=== PATIENT | male | born 1965 | race Caucasian/White ===

== ENCOUNTER 2020-07-27 05:40 | Outpatient (CLI) | payer MEDICARE ==
[~2020-07-27] VITALS: Ht 172.7 cm; Wt 63.5 kg
[~2020-07-27 05:40] MED LIST: ATEN50TA PO; AZTH250C PO; BENZ100C18 PO; BLOOD PRESSURE MED; DOXY100C2 PO; ENLP5T PO; HYDR-3456 PO; LISI1TAB10 PO; METH4TAB PO; NAPR-243 PO; ORPH100T PO
[2020-07-27] MEDS ORDERED: DOXA4TAB2 PO (10:16)
[2020-07-27] MEDS ORDERED: AMLO-251 PO (10:16)
[2020-07-27] MEDS ORDERED: HYDR-34 PO (10:16)
[2020-07-27] MEDS ORDERED: SIMV40TA25 PO (10:16)
== END 2020-07-27 13:31 | disposition home or self-care (01) ==
LOC: PREOP 05:40
PROVIDERS: ATTEND Surgery
DX: Z01.818 Encounter for other preprocedural examination (principal)

== ENCOUNTER 2020-08-01 07:56 | Day surgery (SDC) | payer MEDICARE, MEDICAID ==
[~2020-08-01] VITALS: Ht 172.7 cm; Wt 63.5 kg
[2020-08-01] VITALS (7 sets, daily range): BP systolic 108–132; BP diastolic 58–64
[~2020-08-01 07:56] MED LIST changes: +AMLO-251 PO; +DOXA4TAB2 PO; +HYDR-34 PO; +SIMV40TA25 PO
[2020-08-01] MEDS ORDERED: LACTATED RINGERS 1,000 ML IV ONE (08:04)
[2020-08-01] MEDS ORDERED: LACTATED RINGERS 1,000 ML IV STA (08:18)
[2020-08-01] MEDS ORDERED: PROPOFOL INJECTION 50 ML IV ONE (09:01)
[2020-08-01] MEDS ORDERED: MIDAZOLAM 2 MG/2 ML (VERSED) VIAL ONE (09:01)
--- NOTE | 2020-08-01 10:01 | Discharge Inst-Simple/Standard ---
Discharge Inst-Standard Patient Instructions/Follow Up Plan of Care/Instructions/FU: 2 weeks Natalia Activity as Tolerated: Yes Discharge Diet: Regular Diet MARY THURMAN DO Aug 01, 2020 10:01
--- NOTE | 2020-08-01 10:03 | Progress Note-Post Operative ---
Post-Operative Progess Note Surgeon (s)/Restaurant Line Server (s) Surgeon MARY THURMAN DO Restaurant Line Server: na Pre-Operative Diagnosis +cologuard Post-Operative Diagnosis colon polyps Procedure & Operative Findings Date of Procedure 08/01/20 Procedure Performed/Findings colonoscopy c hot bx polypectomy x 3, snare polypectomy x 2 Anesthesia Type per cemetery vault installer Estimated Blood Loss Estimated blood loss (mL): na Specimens/Packing Specimens Removed sigmoid polyp x 2, rectal polyp x 3 MARY THURMAN DO Aug 01, 2020 10:03
--- NOTE | 2020-08-01 10:44 | Anesthesia-General Post-Op ---
MAC Patient Condition Mental Status/LOC: Same as Preop Cardiovascular: Satisfactory Nausea/Vomiting: Absent Respiratory: Satisfactory Pain: Controlled Complications: Absent Post Op Complications Complications None Follow Up Care/Instructions Patient Instructions None needed. Anesthesiology Discharge Order Discharge Order Patient is doing well, no complaints, stable vital signs, no apparent adverse anesthesia problems. No complications reported per nursing. NAIF RUTHERFORD CRNA Aug 01, 2020 10:44
--- NOTE | 2020-08-01 15:36 | OPERATIVE REPORT ---
DATE OF SERVICE: 08/01/2020 PREOPERATIVE DIAGNOSIS: Positive Cologuard. POSTOPERATIVE DIAGNOSIS: Colon polyps. PROCEDURE: Colonoscopy with hot biopsy polypectomy x3 and snare polypectomy x2. ANESTHESIA: Per SALES AGENT FINANCIAL REPORT SERVICE. SURGEON: Mary Fisher DO ESTIMATED BLOOD LOSS: None. COMPLICATIONS: None. INDICATIONS: The patient is a 55-year-old male with a need for colonoscopy due to positive Cologuard. He understands risks and benefits of procedure and wished to proceed with procedure. Consent was signed in the chart. DESCRIPTION OF PROCEDURE: The patient was taken to the endoscopy suite, placed in left lateral recumbent position. Timeout was performed. Digital rectal exam was performed. No palpable polyps, masses or ulcerations. Scope was inserted in the rectum and advanced all the way to cecum with minimal difficulty. Prep had quite a bit of debris still present within the colon. Lots of irrigation and suction was performed for better visualization. Scope was then slowly retracted back. No polyps, masses or ulcerations were visualized within the cecum, ascending, transverse and descending colon. Two polyps were present within the distal sigmoid, which snare polypectomy was performed. These were obtained for specimen. Scope was then continuously retracted back into the rectum where there were three small polyps in the rectum, which hot biopsy polypectomy was performed. Scope was retroflexed noting no other pathology. Scope was returned to its normal position, slowly withdrawn until completely removed. The patient tolerated procedure well without any complications, taken to recovery room in stable condition. RECOMMENDATIONS: I would recommend repeat colonoscopy in one year due to multiple polyps and some debris in the colon. If any issues before that would be reevaluated at that time. The patient will follow up on pathology results. Job ID: [id number] DocumentID: [id number] Dictated Date: 08/01/2020 10:05:50 Yoker Machine Operator Date: 08/01/2020 15:04:12 Dictated By: MARY FISHER DO
== END 2020-08-01 11:00 | disposition home or self-care (01) ==
LOC: ENDO 07:56
PROVIDERS: ATTEND Surgery
DX: D12.5 Benign neoplasm of sigmoid colon (principal); D12.8 Benign neoplasm of rectum; K63.5 Polyp of colon; K63.89 Other specified diseases of intestine; R19.7 Diarrhea, unspecified; R19.5 Other fecal abnormalities; I10 Essential (primary) hypertension; E78.5 Hyperlipidemia, unspecified; F17.210 Nicotine dependence, cigarettes, uncomplicated; Z79.899 Other long term (current) drug therapy; Z79.891 Long term (current) use of opiate analgesic
CPT/HCPCS: 88305

== ENCOUNTER → 2020-09-15 | Outpatient (CLI) | payer MEDICARE, MEDICAID ==
[~2020-09-15] MED LIST changes: +CATHETER FLUSH 10 ML SYR IV PRN; +HOLD METFORMIN - RECEIVED CONTRAST 20 ML VIAL IV SCH; +IOHEXOL 350 MG/ML 100 ML (OMNIPAQUE 350) VIAL IV ONE; +NS 100 ML (IVPB) BAG IV ONE
[2020-09-15 08:18] LABS: ALBUMIN 3.3 GM/DL (3.2-4.5); BILIRUBIN,TOTAL 0.4 MG/DL (0.1-1.0); CREATININE SERUM 0.66 MG/DL (0.60-1.30); POTASSIUM 3.9 MMOL/L (3.6-5.0); TOTAL PROTEIN 7.2 GM/DL (6.4-8.2)
--- NOTE | 2020-09-15 09:17 | Diagnostic Imaging Report ---
EXAMINATION: CT abdomen and pelvis with intravenous contrast. TECHNIQUE: Multiple contiguous axial images were obtained through the abdomen and pelvis after the uneventful administration of intravenous contrast. All CT scans use one or more of the following dose optimizing techniques: automated exposure control, MA and/or KvP adjustment based on patient size and exam type or iterative reconstruction. HISTORY: Unexpected weight loss. Abdominal pain and bloating after eating. COMPARISON: None available. FINDINGS: The heart is unremarkable. A small amount of atelectasis is seen in the lung bases. There is calcified aortic and iliac atherosclerotic plaque. There is complete occlusion of the aorta inferior to the level of the SMA with thrombus extending into the bilateral common iliac arteries. There is reconstitution of flow to the lower extremity via prominent bilateral epigastric arteries. There is complete occlusion of the proximal SMA with reconstitution of flow in the more proximal portion of the SMA. Diminutive SEAN is noted. The renal arteries are patent. The celiac axis is patent. No findings to suggest bowel infarct. No evidence of bowel obstruction. No free fluid or free air in the abdomen and pelvis. The liver, spleen, pancreas, adrenal glands, and kidneys have a normal appearance. Gallstone is visualized in the gallbladder lumen. There is no pathologically enlarged mesenteric or retroperitoneal adenopathy. No acute osseous abnormalities. Ureters and bladder are grossly normal. There is no free air, loculated collection, or adenopathy in the pelvis. IMPRESSION: 1. Findings consistent with aortoiliac occlusive disease (Leriche syndrome). Additional occlusion is also seen in the proximal SMA. Findings are likely chronic given the intact robust epigastric collateral supply to the lower extremities and intact collateral flow to the superior mesenteric artery. No findings to suggest bowel infarct. No free fluid or free air seen in the abdomen and pelvis. 2. Cholelithiasis without CT evidence of acute cholecystitis. Findings were called to Dr. Engel at 9:05 AM on 09/15/[address] Brody Weaver. Dictated by: Dictated on workstation # [id number]
== END ==
LOC: RAD 08:45
PROVIDERS: ATTEND Internal Medicine
DX: K80.20 Calculus of gallbladder without cholecystitis without obstruction (principal); R63.4 Abnormal weight loss
CPT/HCPCS: 36415; 74177; 80053

== ENCOUNTER 2020-11-13 19:53 | Emergency (ER) | payer MEDICARE, MEDICAID ==
[~2020-11-13] VITALS: Ht 167 cm; Wt 50.0 kg
[~2020-11-13 19:53] MED LIST changes: -CATHETER FLUSH 10 ML SYR IV PRN; -HOLD METFORMIN - RECEIVED CONTRAST 20 ML VIAL IV SCH; -IOHEXOL 350 MG/ML 100 ML (OMNIPAQUE 350) VIAL IV ONE; -NS 100 ML (IVPB) BAG IV ONE
--- NOTE | 2020-11-13 20:29 | ED Abdominal Pain ---
General Chief Complaint: Abdominal/GI Problems Stated Complaint: GI PAIN Source of Information: Patient Exam Limitations: No Limitations History of Present Illness Date Seen by Provider: Nov 13, 2020 Time Seen by Provider: 20:00 Initial Comments Patient to the ER by EMS from home with chief complaint of intensifying progressive pain in his umbilicus region. He was at [facility] apparently had it worked up and there was some kind of narrowing. Unsure if it is hernia, obstruction or other disease. He denies a history of peripheral or central arterial disease. He states he has not had a bowel since yesterday but he is having loose stools then. He is not having any fevers chills cough shortness of air chest pain. He has had no abdominal surgeries. No nausea or vomiting. No dysuria. He is unclear what the pathology they found he has just knows that a manager rfid is going to do surgery on him. Allergies and Home Medications Allergies Coded Allergies: No Known Drug Allergies (Unverified , 12/24/09) Patient Home Medication List Home Medication List Reviewed: Yes Amlodipine Besylate (Amlodipine Besylate) 10 Mg Tablet, 10 MG PO DAILY, (Reported) Entered as Reported by: RICK CARVAJAL on 07/27/20 1016 Doxazosin Mesylate (Doxazosin Mesylate) 4 Mg Tablet, 4 MG PO DAILY, (Reported) Entered as Reported by: RCIK CARVAJAL on 07/27/20 1016 Hctz/Lisinopril (Lisinopril-Hctz 20-25MG Tab) 1 Tab Tablet, 1 EACH PO DAILY, (Reported) Entered as Reported by: JI BURGER on 05/11/12 2303 Hydrocodone Bit/Acetaminophen (HYDROcodone/APAP 7.5/325 TAB) 1 Ea Tablet, 1 EA PO PRN, (Reported) Entered as Reported by: RICK CARVAJAL on 07/27/20 1016 Simvastatin (Simvastatin) 40 Mg Tablet, 40 MG PO DAILY, (Reported) Entered as Reported by: RICK CARVAJAL on 07/27/20 1016 Review of Systems Review of Systems Constitutional: No chills, No diaphoresis, No fever EENTM: No Blurred Vision, No Double Vision Respiratory: Denies Cough, Denies Shortness of Air Cardiovascular: Denies Chest Pain, Denies Lightheadedness Gastrointestinal: See HPI; Denies Abdomen Distended; Abdominal Pain; Denies Constipated; Diarrhea; Denies Nausea, Denies Vomiting Genitourinary: Denies Burning, Denies Discharge Musculoskeletal: No back pain, No joint pain Skin: No pruritus, No rash Psychiatric/Neurological: Denies Anxiety, Denies Depressed All Other Systems Reviewed Negative Unless Noted: Yes Past Wrfuiff-Uugoma-Umewrm Hx Patient Social History Tobacco Use?: No Use of E-Cig and/or Vaping dev: No Substance use?: No Alcohol Use?: No Seasonal Allergies Seasonal Allergies: No Past Medical History Surgeries: No Respiratory: No Cardiac: Yes High Cholesterol, Hypertension Neurological: No Reproductive Disorders: No Sexually Transmitted Disease: No HIV/AIDS: No Genitourinary: No Gastrointestinal: No Musculoskeletal: Yes Chronic Back Pain Endocrine: No HEENT: No Loss of Vision: Denies Hearing Impairment: Denies Cancer: No Psychosocial: No Integumentary: No Blood Disorders: No Physical Exam Vital Signs Vital Signs - First Documented 11/13/20 20:00 Temp 37.5 Pulse 127 Resp 18 B/P (MAP) 104/95 Pulse Ox 94 O2 Delivery Nasal Cannula O2 Flow Rate 2.00 Capillary Refill : Height/Weight/BMI Height: 5'8" Weight: 185lbs. oz. 83.622259io; 21.29 BMI Method:Stated General Appearance: WD/WN, moderate distress HEENT: PERRL/EOMI, pharynx normal Neck: non-tender, full range of motion, normal inspection Respiratory: lungs clear, normal breath sounds, no respiratory distress, no accessory muscle use Cardiovascular: normal peripheral pulses, regular rate, rhythm Gastrointestinal: normal bowel sounds, guarding, tenderness (Exquisite tenderness everywhere around the umbilicus) Neurologic/Psychiatric: alert, normal mood/affect, oriented x 3 Skin: normal color, warm/dry Focused Exam Lactate Level 11/13/20 20:00: Lactic Acid Level 1.67 Lactic Acid Level Laboratory Tests Test 11/13/20 20:00 Lactic Acid Level 1.67 MMOL/L (0.50-2.00) Progress/Results/Core Measures Results/Orders Lab Results Laboratory Tests Test 11/13/20 20:00 11/13/20 22:16 Range/Units White Blood Count 10.8 4.3-11.0 10^3/uL Red Blood Count 3.95 L 4.30-5.52 10^6/uL Hemoglobin 9.0 L 13.3-17.7 g/dL Hematocrit 29 L 40-54 % Mean Corpuscular Volume 72 L 80-99 fL Mean Corpuscular Hemoglobin 23 L 25-34 pg Mean Corpuscular Hemoglobin Concent 32 32-36 g/dL Red Cell Distribution Width 17.0 H 10.0-14.5 % Platelet Count 372 130-400 10^3/uL Mean Platelet Volume 9.1 9.0-12.2 fL Immature Granulocyte % (Auto) 1 % Neutrophils (%) (Auto) 77 H 42-75 % Lymphocytes (%) (Auto) 10 L 12-44 % Monocytes (%) (Auto) 7 0-12 % Eosinophils (%) (Auto) 4 0-10 % Basophils (%) (Auto) 1 0-10 % Neutrophils # (Auto) 8.4 H 1.8-7.8 10^3/uL Lymphocytes # (Auto) 1.1 1.0-4.0 10^3/uL Monocytes # (Auto) 0.8 0.0-1.0 10^3/uL Eosinophils # (Auto) 0.5 H 0.0-0.3 10^3/uL Basophils # (Auto) 0.1 0.0-0.1 10^3/uL Immature Granulocyte # (Auto) 0.1 0.0-0.1 10^3/uL Prothrombin Time 15.0 H 12.2-14.7 SEC INR Comment 1.1 0.8-1.4 Activated Partial Thromboplast Time 37 H 24-35 SEC Sodium Level 130 L 135-145 MMOL/L Potassium Level 3.4 L 3.6-5.0 MMOL/L Chloride Level 97 L 98-107 MMOL/L Carbon Dioxide Level 20 L 21-32 MMOL/L Anion Gap 13 5-14 MMOL/L Blood Urea Nitrogen 10 7-18 MG/DL Creatinine 0.53 L 0.60-1.30 MG/DL Estimat Glomerular Filtration Rate 162 BUN/Creatinine Ratio 19 Glucose Level 119 H 70-105 MG/DL Lactic Acid Level 1.67 0.50-2.00 MMOL/L Calcium Level 9.2 8.5-10.1 MG/DL Corrected Calcium 10.0 8.5-10.1 MG/DL Total Bilirubin 0.4 0.1-1.0 MG/DL Aspartate Amino Transf (AST/SGOT) 10 5-34 U/L Alanine Aminotransferase (ALT/SGPT) 9 0-55 U/L Alkaline Phosphatase 105 40-136 U/L Total Creatine Kinase 11 L 30-200 U/L Total Protein 7.0 6.4-8.2 GM/DL Albumin 3.0 L 3.2-4.5 GM/DL SARS-CoV-2 RNA (RT-PCR) Not Detected Not Detecte My Orders Orders - TREVON FANG Fentanyl Inj (Sublimaze Injection) (11/13/20 20:30) Ed Iv/Invasive Line Start (11/13/20 20:30) Ns Iv 1000 Ml (Sodium Chloride 0.9%) (11/13/20 20:30) Ciprofloxacin Iv 400mg/200ml (Cipro Iv S (11/13/20 20:30) Metronidazole 500mg/100ml Ivpb (Flagyl 5 (11/13/20 20:30) Iohexol Injection (Omnipaque 350 Mg/Ml 1 (11/13/20 21:30) Received Contrast (Hold Metformin- Contr (11/13/20 21:30) Ns (Ivpb) (Sodium Chloride 0.9% Ivpb Bag (11/13/20 21:30) Covid 19 Inhouse Test (11/13/20 22:13) Medications Given in ED Current Medications Medications Dose Ordered Sig/Truong Route Start Time Stop Time Status Last Admin Dose Admin Ciprofloxacin/ Dextrose 200 ml @ 200 mls/hr ONCE ONCE IV 11/13/20 20:30 11/13/20 21:29 DC 11/13/20 21:55 200 MLS/HR Fentanyl Citrate 50 mcg ONCE ONCE IVP 11/13/20 20:30 11/13/20 20:31 DC 11/13/20 20:34 50 MCG Iohexol 100 ml ONCE ONCE IV 11/13/20 21:30 11/13/20 21:31 DC 11/13/20 21:23 66 ML Metronidazole 100 ml @ 100 mls/hr ONCE ONCE IV 11/13/20 20:30 11/13/20 21:29 DC 11/13/20 21:55 100 MLS/HR Sodium Chloride 100 ml ONCE ONCE IV 11/13/20 21:30 11/13/20 21:31 DC 11/13/20 21:24 80 ML Vital Signs/I&O 11/13/20 11/13/20 11/13/20 11/13/20 20:00 20:00 20:42 22:18 Temp 37.5 37.5 37.5 Pulse 127 104 106 Resp 18 18 14 B/P (MAP) 104/95 148/63 (91) 107/60 Pulse Ox 94 94 94 91 O2 Delivery Nasal Cannula Nasal Cannula Room Air Room Air O2 Flow Rate 2.00 2.00 Progress Progress Note #1: Time: 20:28 Progress Note Differential is wide and includes things such as hernia, obstruction, biliary disease, appendicitis etc. Plan to get a CT of his abdomen pelvis with IV contrast given 50 mcg of fentanyl and because his blood pressure was a little on the soft side 104 systolic on arrival we initiated a liter of fluids. It has improved to 145/63. Heart rate is elevated so we are doing a septic work-up with Darciro and Vinod. I estimate his weight around 100 pounds therefore a liter is more than 20 mL/kg. Progress Note #2: Time: 23:20 Progress Note Patient has warm, pale feet with dopplerable dorsal pedal pulses. This is being worked up outpatient so we will call [facility] and speak to the surgery team and see what their recommendations are for him tonight. Capillary refill is 3 to 4 seconds. We discussed the case with Dr. Plasencia who is on-call over at [facility] and he agrees that this can be managed outpatient at this time. He recommends that he call Dr. Mclaughlin first thing in the morning. We will provide him with some pain medicine and send him home. The patient's in agreement with this plan. Diagnostic Imaging Diagonstic Imaging: Xray Plain Films/CT/US/NM/MRI: chest Comments No acute cardiopulmonary process on 1 view chest. [facility]. [place], [place] NAME: LAVERNE SHARMA V MED REC#: [id number] PT STATUS: REG ER : 1965 PHYSICIAN: AKUA BOURNE BALL POINTS INSPECTOR ADMIT DATE: 11/13/20/ER Signed Date of Exam:11/13/20 CHEST 1 VIEW, AP/PA ONLY EXAMINATION: Chest 1 view HISTORY: sepsis COMPARISON: 01/30/2014 FINDINGS: Heart size and pulmonary vasculature are normal. There are patchy interstitial opacities within the mid and upper lungs as well as within the lung bases. No pleural effusion or pneumothorax. There are calcifications of the aorta. The osseous structures are intact. IMPRESSION: 1. Patchy interstitial opacities throughout the lungs which can be seen with pulmonary edema, atelectasis, or pneumonia. Dictated by: Dictated on workstation # [id number] Dict: 11/13/202035 Trans: 11/13/202152 [facility] [id number] Interpreted by: MIGUEL ANGEL TORRES DO Electronically signed by: MIGUEL ANGEL TORRES DO 11/13/202152 Reviewed: Reviewed by Ms Diagonstic Imaging: CT Plain Films/CT/US/NM/MRI: abdomen, pelvis Comments [facility] [place] [place] NAME: LAVERNE SHARMA REC#: [id number] PT STATUS: REG ER : 1965 PHYSICIAN: AKUA BOURNE BALL POINTS INSPECTOR ADMIT DATE: 11/13/20/ER Signed Date of Exam:11/13/20 CT ABDOMEN/PELVIS W EXAMINATION: CT abdomen and pelvis with intravenous contrast. TECHNIQUE: Multiple contiguous axial images were obtained through the abdomen and pelvis after the uneventful administration of intravenous contrast. All CT scans use one or more of the following dose optimizing techniques: automated exposure control, MA and/or KvP adjustment based on patient size and exam type or iterative reconstruction. HISTORY: Abdominal pain COMPARISON: 09/15/2020 FINDINGS: Lung bases: The lung bases are clear. Solid organs: The liver is normal without focal lesion. The gallbladder is normal. There is no biliary ductal dilation. Pancreas is normal. Spleen is normal. Adrenal glands are normal. There is trace bilateral hydronephrosis without visualized obstructing calculus. Bowel: There is no bowel obstruction. No findings of acute appendicitis. Peritoneum: There is no intraperitoneal free fluid or free air. No suspicious lymphadenopathy. Vasculature: Calcification of the aorta without aneurysm. There may be significant stenosis of the mid abdominal aorta inferior to the renal arteries. Musculoskeletal: Degenerative changes of the spine without suspicious osseous lesion or compression fracture. Pelvis: The prostate gland is normal. The urinary bladder is normal. IMPRESSION: 1. Near-complete stenosis of the abdominal aorta inferior to the renal arteries. 2. No other acute abnormality is seen within the abdomen or pelvis. Dictated by: Dictated on workstation # [id number] Dict: 11/13/202133 Trans: 11/13/202153 [facility] [id number] Interpreted by: MIGUEL ANGEL TORRES DO Electronically signed by: MIGUEL ANGEL TORRES DO 11/13/202153 Reviewed: Reviewed by Me Departure Impression Primary Impression: Abdominal aortic stenosis Disposition: HOME, SELF-CARE Condition: Stable Departure-Patient Inst. Decision time for Depature: 23:24 Referrals: BOUCHRA ESQUEDA MD (PCP/Family) Primary Care Physician Patient Instructions: No Instuctions Given Add. Discharge Instructions: In the morning call Dr. Mclaughlin and his team to set up the next step in your care for your narrowed aorta. If you have pain you may take 1 or 2 tablet of hydrocodone every 4 hours as needed. If you have intractable pain and you should return to the nearest ER or call your surgeon for instructions. All discharge instructions reviewed with patient and/or family. Voiced understanding. Scripts Hydrocodone/Acetaminophen (Hydrocodone-Acetamin 7.5-325) 1 Each Tablet 1 EACH PO Q4H PRN for PAIN-BREAKTHROUGH, #20 TAB 0 Refills Prov: TREVON FANG 11/13/20 TREVON FANG Nov 13, 2020 20:29
[2020-11-13] MEDS ORDERED: NS IV 1000 ML 1,000 ML IV SCH (20:30)
[2020-11-13] MEDS ORDERED: fentaNYL INJ 100 MCG/2 ML AMP IVP ONE (20:30)
[2020-11-13] MEDS ORDERED: metroNIDAZOLE 500MG/100ML IVPB 100 ML IV ONE (20:30)
--- NOTE | 2020-11-13 20:39 | Diagnostic Imaging Report ---
EXAMINATION: Chest 1 view HISTORY: sepsis COMPARISON: 01/30/2014 FINDINGS: Heart size and pulmonary vasculature are normal. There are patchy interstitial opacities within the mid and upper lungs as well as within the lung bases. No pleural effusion or pneumothorax. There are calcifications of the aorta. The osseous structures are intact. IMPRESSION: 1. Patchy interstitial opacities throughout the lungs which can be seen with pulmonary edema, atelectasis, or pneumonia. Dictated by: Dictated on workstation # [id number]
[2020-11-13 20:50] LABS: BASOPHILS # (AUTO) 0.1 10^3/uL (0.0-0.1); BASOPHILS % (AUTO) 1 % (0-10); EOSINOPHILS # (AUTO) 0.5 10^3/uL (0.0-0.3); EOSINOPHILS % (AUTO) 4 % (0-10); HEMATOCRIT 29 % (40-54); LYMPHOCYTES # (AUTO) 1.1 10^3/uL (1.0-4.0); LYMPHOCYTES % (AUTO) 10 % (12-44); MEAN CORPUSCULAR HEMOGLOBIN 23 pg (25-34); MEAN CORPUSCULAR HGB CONC 32 g/dL (32-36); MEAN CORPUSCULAR VOLUME 72 fL (80-99); MEAN PLATELET VOLUME 9.1 fL (9.0-12.2); MONOCYTES # (AUTO) 0.8 10^3/uL (0.0-1.0); MONOCYTES % (AUTO) 7 % (0-12); NEUTROPHILS # (AUTO) 8.4 10^3/uL (1.8-7.8); NEUTROPHILS % (AUTO) 77 % (42-75); PLATELET COUNT 372 10^3/uL (130-400); WHITE BLOOD COUNT 10.8 10^3/uL (4.3-11.0)
[2020-11-13 20:56] LABS: INR 1.1 (0.8-1.4)
[2020-11-13 20:59] LABS: POTASSIUM 3.4 MMOL/L (3.6-5.0)
[2020-11-13 21:00] LABS: CALCIUM 9.2 MG/DL (8.5-10.1)
[2020-11-13 21:03] LABS: BILIRUBIN,TOTAL 0.4 MG/DL (0.1-1.0)
[2020-11-13 21:05] LABS: CREATININE SERUM 0.53 MG/DL (0.60-1.30)
[2020-11-13] MEDS ORDERED: HOLD METFORMIN - RECEIVED CONTRAST 20 ML VIAL IV SCH (21:30)
[2020-11-13] MEDS ORDERED: IOHEXOL 350 MG/ML 100 ML (OMNIPAQUE 350) VIAL IV ONE (21:30)
[2020-11-13] MEDS ORDERED: NS 100 ML (IVPB) BAG IV ONE (21:30)
--- NOTE | 2020-11-13 21:41 | Diagnostic Imaging Report ---
EXAMINATION: CT abdomen and pelvis with intravenous contrast. TECHNIQUE: Multiple contiguous axial images were obtained through the abdomen and pelvis after the uneventful administration of intravenous contrast. All CT scans use one or more of the following dose optimizing techniques: automated exposure control, MA and/or KvP adjustment based on patient size and exam type or iterative reconstruction. HISTORY: Abdominal pain COMPARISON: 09/15/2020 FINDINGS: Lung bases: The lung bases are clear. Solid organs: The liver is normal without focal lesion. The gallbladder is normal. There is no biliary ductal dilation. Pancreas is normal. Spleen is normal. Adrenal glands are normal. There is trace bilateral hydronephrosis without visualized obstructing calculus. Bowel: There is no bowel obstruction. No findings of acute appendicitis. Peritoneum: There is no intraperitoneal free fluid or free air. No suspicious lymphadenopathy. Vasculature: Calcification of the aorta without aneurysm. There may be significant stenosis of the mid abdominal aorta inferior to the renal arteries. Musculoskeletal: Degenerative changes of the spine without suspicious osseous lesion or compression fracture. Pelvis: The prostate gland is normal. The urinary bladder is normal. IMPRESSION: 1. Near-complete stenosis of the abdominal aorta inferior to the renal arteries. 2. No other acute abnormality is seen within the abdomen or pelvis. Dictated by: Dictated on workstation # [id number]
[2020-11-13] MEDS: CIPROFLOXACIN IV 400MG/200ML 200 ML IV ONE ×2 (21:55→23:43)
[2020-11-13] MEDS ORDERED: HYDR-3817 PO (23:28)
[2020-11-13 23:38] VITALS: BP 107/65
[2020-11-13 23:54] LABS: BILIRUBIN,URINE NEGATIVE (NEGATIVE); CLARITY,URINE CLEAR; COLOR,URINE YELLOW; GLUCOSE, URINE (UA) NEGATIVE (NEGATIVE); KETONES,URINE NEGATIVE (NEGATIVE); LEUKOCYTE ESTERASE ,URINE NEGATIVE (NEGATIVE); NITRITE,URINE NEGATIVE (NEGATIVE); PROTEIN,URINE NEGATIVE (NEGATIVE)
[2020-11-14 00:01] LABS: BACTERIA,URINE NEGATIVE /HPF; SQUAMOUS EPITHELIAL CELL,UR RARE /HPF
== END 2020-11-13 23:39 | disposition home or self-care (01) ==
LOC: EDUNIT# 19:53 → ER 19:54
DX: I77.89 Other specified disorders of arteries and arterioles (principal); I10 Essential (primary) hypertension; E78.00 Pure hypercholesterolemia, unspecified; G89.29 Other chronic pain; M54.9 Dorsalgia, unspecified; Z79.891 Long term (current) use of opiate analgesic; Z79.899 Other long term (current) drug therapy; Z20.822 Contact with and (suspected) exposure to COVID-19
CPT/HCPCS: 36415; 71045; 74177; 80053; 81000; 82550; 83605; 85025; 85610; 85730; 87040; 87088; 87636